=== PATIENT | female | born 1980 | race Caucasian/White ===

== ENCOUNTER 2023-03-17 00:45 | Emergency (ER) | payer OTHER ==
[~2023-03-17] VITALS: Ht 157.5 cm; Wt 83.9 kg
[2023-03-17 01:24] VITALS: BP 136/84; PULSE 79; RESP 18; TEMP 97; O2SAT 100
[2023-03-17 01:30] VITALS: BP 136/84; PULSE 79; RESP 18; TEMP 97; O2SAT 100
--- NOTE | 2023-03-17 01:35 | NUR ---
PT TAKEN TO BED 2
[2023-03-17] MEDS ORDERED: IBUP-1842 PO (02:08)
[2023-03-17] MEDS ORDERED: CEPH-588 PO (02:08)
--- NOTE | 2023-03-17 03:25 | NUR ---
Patient discharged. Written and verbal after care instructions given and explained. Patient alert, oriented and verbalized understanding of instructions. Ambulatory with steady gait. All questions addressed prior to discharge. ID band removed. Patient advised to follow up with PMD. Rx of Keflex and Motrin given. Patient educated on indication of medication including possible reaction and side effects. Opportunity to ask questions provided and answered.
== END 2023-03-17 03:25 | disposition home or self-care (01) ==
LOC: MED 00:45
DX: L03.115 Cellulitis of right lower limb (principal)
CPT/HCPCS: 99283